=== PATIENT | female | born 1975 | race Caucasian/White ===

== ENCOUNTER 2017-01-06 14:26 | Emergency (ER) | payer SELFPAY ==
--- NOTE | 2017-01-06 17:55 | ED ---
Syncope/Near Syncope - HPI Summary HPI Summary: 41F presents with syncopal episode today. She has history of MS and is followed up by [place]ist in [place]. She is currently on a steroid taper for her MS for a new exacerbation. She states before the episode occurred she felt like she had to sneeze. no chest pain or SOB. no fever. no lightheadedenss. She was sitting in the car when it happened so no head injury. no history of syncope. was only out for a couple seconds. no family history of sudden cardiac . no history of HTN or DM. - History Of Current Complaint Chief Complaint: EDSyncope PMH/Surg Hx/FS Hx/Imm Hx Endocrine/Hematology History: Denies: Hx Anticoagulant Therapy Cardiovascular History: Denies: Hx Hypertension Neurological History: Reports: Other Neuro Impairments/Disorders - MS Infectious Disease History: No Infectious Disease History: Denies: Traveled Outside the [place] in Last 30 Days - Family History Known Family History: Positive: Cardiac Disease - Social History Alcohol Use: None Substance Use Type: Reports: None Smoking Status (MU): Never Smoked Tobacco Review of Systems Negative: Fever Negative: Chest Pain Negative: Shortness Of Breath Positive: Syncope All Other Systems Reviewed And Are Negative: Yes Physical Exam Triage Information Reviewed: Yes Vital Signs On Initial Exam: Initial Vitals Temp Pulse Resp BP Pulse Ox 100.0 F 88 20 116/60 100 01/06/17 14:34 01/06/17 14:34 01/06/17 14:34 01/06/17 14:34 01/06/17 14:34 Vital Signs Reviewed: Yes Appearance: Positive: Well-Appearing Skin: Positive: Warm, Dry Head/Face: Positive: Normal Head/Face Inspection Eyes: Positive: Normal, EOMI, ASHIA, Conjunctiva Clear ENT: Positive: Normal ENT inspection, Pharynx normal, TMs normal Respiratory/Lung Sounds: Positive: Clear to Auscultation, Breath Sounds Present Cardiovascular: Positive: Normal, RRR Abdomen Description: Positive: Nontender, Soft Bowel Sounds: Positive: Present Neurological: Positive: Sensory/Motor Intact, Alert, Oriented to Person Place, Time, CN Intact II-III Diagnostics - Vital Signs Vital Signs Temp Pulse Resp BP Pulse Ox 01/06/17 16:35 97.7 F 72 20 118/64 100 01/06/17 14:34 100.0 F 88 20 116/60 100 - Laboratory Result Diagrams: 01/06/17 17:58 01/06/17 17:58 Lab Statement: Any lab studies that have been ordered have been reviewed, and results considered in the medical decision making process. - EKG No standard instances Cardiac Rate: NL EKG Rhythm: Sinus Rhythm ST Segment: Normal Course/Dx Course Of Treatment: 41F presents with syncopal episode today. She has history of MS and is followed up by a neurologist in [place]. She is currently on a steroid taper for her MS for a new exacerbation. She states before the episode occurred she felt like she had to sneeze. no chest pain or SOB. no fever. no lightheadedenss. She was sitting in the car when it happened so no head injury. no history of syncope. was only out for a couple seconds. no family history of sudden cardiac . no history of HTN or DM. normal neuro exam. lungs CTA. ekg normal. tropoin, d-dimer normal. patient eloped before could get second troponin or other labs. patient understands and agrees with plan. - Diagnoses Differential Diagnosis/HQI/PQRI: Positive: Hypoglycemia, Hypovolemia, Myocardial Infarction Provider Diagnoses: Syncope Discharge - Discharge Plan Condition: Stable Disposition: OTHER Discharge Disposition Comment: eloped Referrals: No Primary Care Phys,NOPCP [Primary Care Provider] -
[2017-01-06 18:11] LABS: Hematocrit 35 % (35-47); Hemoglobin 11.5 g/dl (12.0-16.0); Mean Corpuscular HGB Conc 33 g/dl (31-36); Mean Corpuscular Hemoglobin 29 pg (27-31); Mean Corpuscular Volume 88 fL (80-97); Mean Platelet Volume 9 um3 (7.4-10.4); Red Blood Count 3.95 10^6/ul (4.0-5.4); Red Cell Distribution Width 13 % (10.5-15); White Blood Count 6.6 10^3/ul (3.5-10.8)
[2017-01-06 18:27] LABS: Calcium 8.9 mg/dL (8.6-10.3); EGFR African American 88.3 (>60); EGFR Non-African American 68.7 (>60); Globulin 2.4 g/dL (2-4); Magnesium 2.1 mg/dL (1.9-2.7); Total Bilirubin 0.4 mg/dL (0.2-1.0); Total Protein 6.4 g/dL (6.4-8.9)
[2017-01-06 19:01] LABS: TSH (Thyroid Stimulating Horm) 1.04 mcIU/mL (0.34-5.60)
[2017-01-06 19:46] VITALS: BP 116/62
== END 2017-01-06 15:52 ==
LOC: ED 14:26
DX: R55 Syncope and collapse (principal); G35 Multiple sclerosis
CPT/HCPCS: 36415; 80053; 82553; 83605; 83735; 84443; 84484; 85025; 85379; 93005; 99283